=== PATIENT | female | born 1960 | race Caucasian/White ===

== ENCOUNTER 2018-02-23 16:05 | Observation (INO) | payer MEDICAID ==
[~2018-02-23] VITALS: Ht 165.1 cm; Wt 81.0 kg
[2018-02-23] VITALS (7 sets, daily range): BP systolic 105–157; BP diastolic 53–102
--- NOTE | ~2018-02-23 | HEMODYNAMI ---
PATIENT:WINNIE REID MEDICAL RECORD: [id number] : 64 LOCATION:[facility] D.2120 ADMISSION DATE: 02/23/18 Generatedon:02/25/201815:10 Patient name: WINNIE REID Patient #: [id number] SSN: : 1960 Date of study: 02/25/2018 Page: Of Hemodynamic Procedure Report Patient Data Patient Demographics Procedure consent was obtained First Name: WINNIE Gender: Female Last Name: JEANETTE : 1960 [facility] Initial: L Age: 57 year(s) Patient #: [id number] Race: Unknown Additional ID: [id number] Contact details Address: [address] [place] [address] State: [place] City: [facility] [place] Zip code: [address] Past Medical History Allergies Allergen Reaction Date Comments Reported Other allergy 02/25/2018 NSAIDS, TYLENOL, AMOXICILLIN, ASA, MORPHINE Admission Admission Data Admission Date: 02/23/2018 Admission Time: 21:51 Room #: D.2120 Lab Results Lab Result Date: 02/25/2018 Lab Result Time: 0:00 Biochemistry Name Units Result Min Max BUN mg/dl 10 --(-*--)-- 7 18 Creatinine mg/dl 0.9 --(-*--)-- 0.6 1.3 CBC Name Units Result Min Max Hemoglobin g/dl 14.3 --(*---)-- 13.5 17.5 Procedure Procedure Types Cath Procedure Diagnostic Procedure LHC LHC w/Coronaries Procedure Description Procedure Date Procedure Date: 02/25/2018 Procedure Start Time: 14:56 Procedure End Time: 15:09 Procedure Staff Name Function Dariel Reis MD Performing Physician Stephenie Vernon RT Monitor Selam Sterling RT Scrub Kandi Finley RN Nurse Procedure Data Cath Procedure Fluoroscopy Diagnostic fluoroscopy Total fluoroscopy Time: 2.7 time: 2.7 min min Diagnostic fluoroscopy Total fluoroscopy dose: 488 dose: 488 mGy mGy Contrast Material Contrast Material Type Amount (ml) Isovue 300 31 Entry Location Entry Primary Successful Side Size Upsize Upsize Entry Closure Bauer ccessful Closure Location (Fr) 1 (Fr) 2 (Fr) Remarks Device Remarks Radial Right 6 Fr Mechanical artery Short Compression Estimated blood loss: 5 ml Diagnostic catheters Device Type Used For End Catheter Placement DIAGNOSTIC Stillmore 110cm 5 Procedure Fr catheter ([id number]) Procedure Complications No complications Procedure Medications Medication Administration Route Dosage Oxygen etCO2 Nasal cannula 2 l/min Lidocaine 2% added to field 20 Heparin Flush Bag added to field 2 bags (1000units/500ml NS) 0.9% NaCl I.V. 100 ml/hr Versed I.V. 1 mg Fentanyl I.V. 50 mcg Radial Cocktail I.A. 1 syringe (Verapomil 2mg/Nitro 400mcg/Heparin 1500units) Versed I.V. 1 mg Fentanyl I.V. 50 mcg Versed I.V. 1 mg Plavix P.O. 300 mg Hemodynamics Rest HGB: 14.3 (g/dl) Heart Rate: 68 (bpm) Snapshots Pre Cath Intra NCS Post Cath Vital Signs Time Heart Resp SPO2 etCO2 NIBP (mmHg) Rhythm Pain Sedation Rate (ipm) (%) (mmHg) Status Level (bpm) 14:22:19 71 16 97 0 115/86(102) NSR 0 (11) 10(A) , No pain 14:26:18 73 15 98 43.4 118/75(89) NSR 0 (11) 10(A) , No pain 14:30:16 71 15 100 44.2 113/81(101) NSR 0 (11) 10(A) , No pain 14:34:16 67 14 98 44.2 101/72(82) NSR 0 (11) 10(A) , No pain 14:38:11 68 13 97 43.4 110/76(92) NSR 0 (11) 10(A) , No pain 14:42:13 69 14 98 42.7 115/66(86) NSR 0 (11) 10(A) , No pain 14:46:16 67 13 97 42.6 113/63(82) NSR 0 (11) 10(A) , No pain 14:50:37 67 18 98 41.9 100/68(79) NSR 0 (11) 10(A) , No pain 14:54:36 64 19 99 43.4 98/61(74) NSR 0 (11) 10(A) , No pain 14:58:32 72 18 98 48.6 99/70(81) NSR 0 (11) 9(A) , No pain 15:02:31 79 18 95 0 99/61(87) NSR 0 (11) 9(A) , No pain 15:05:56 76 15 94 40.3 101/58(79) NSR 0 (11) 10(A) , No pain Medications Time Medication Route Dose Verified Delivered Reason Notes Effectiveness by by 14:29:17 Plavix P.O. 300 mg Dariel Buffie for Smiley Finley RN antiplatelet therapy 14:30:10 Oxygen etCO2 2 l/min Dariel Buffie used for Nasal Smiley Finley RN procedure cannula 14:30:18 Lidocaine 2% added 20ml Darielrosana Vieira for local to vial Smiley Reis MD anesthetic field 14:30:25 Heparin Flush added 2 bags Dariel Vieira used for Bag to Smiley Reis MD procedure (1000units/500ml field NS) 14:30:33 0.9% NaCl I.V. 100 Dariel Buffie Per ml/hr Smiley Finley RN physician 14:54:09 Versed I.V. 1 mg Dariel Espinozaie for sedation Smiley Finley RN 14:54:16 Fentanyl I.V. 50 mcg Dariel Espinozaie for sedation Smiley Finley RN 14:58:28 Radial Cocktail I.A. 1 Darielrosana Vieira for (Verapomil syringe Smiley Reis MD vasodilation 2mg/Nitro 400mcg/Heparin 1500units) 14:59:23 Versed I.V. 1 mg Dariel Buffie for sedation Smiley Finley RN 14:59:27 Fentanyl I.V. 50 mcg Dariel Espinozaie for sedation Smiley Finley RN 15:04:46 Versed I.V. 1 mg Dariel Buffie for sedation Smiley Finley RN Procedure Log Time Note 13:59:16 Time tracking: Regular hours (M-F 7:00 - 5:00) 13:59:20 Plan of Care:Hemodynamics will remain stable., Cardiac rhythm will remain stable., Comfort level will be maintained., Respiratory function will remain adequate., Patient/ family verbilizes understanding of procedure., Procedure tolerated without complication., Recovers from procedure without complications.. 13:59:22 Stephenie Vernon RT(R) sent for patient. Start room use. 13:59:23 Signed procedure consent form obtained from patient. 13:59:31 H&P Date Dictated: 02/23/2018 Within 30 days and on chart.. 14:12:20 Patient received from Med II to CCL 2 Alert and oriented. Tansferred to table in Supine position. 14:12:21 Warm blankets applied, and maría elena hugger turned on for patient comfort. 14:12:21 Correct patient and procedure confirmed by team. 14:12:22 ECG and BP/O2 sat monitors applied to patient. 14:21:15 Vital chart was started 14:24:12 Baseline sample Acquired. 14:24:23 Rhythm: sinus rhythm 14:24:25 Full Disclosure recording started 14:24:26 Pre-procedure instructions explained to patient. 14:24:26 Pre-op teaching completed and patient verbalized understanding. 14:24:27 Family unavailable. 14:24:29 Patient NPO since Midnight. 14:24:32 Is patient on blood thinner?Yes 14:24:39 PRE LOADED 14:24:41 Patient diabetic? No. 14:24:56 Previous problem with sedation/anesthesia? Yes ? 14:24:58 Snore? Yes 14:24:59 Sleep apnea? No 14:24:59 Deviated septum? No 14:25:00 Opens mouth fully? Yes 14:25:01 Sticks out tongue? Yes 14:25:05 Airway obstruction? Yes ASTHMA, COPD 14:25:08 Dentures? No ? 14:25:10 Modified Kev's test Ulnar < 7 seconds 14:25:12 Patient pain scale 0/10 ?. 14:25:17 IV patent on arrival in left antecubital with 0.9% NaCl at [facility]. 14:26:41 Lab Result : Creatinine 0.9 mg/dl 14:26:41 Lab Result : BUN 10 mg/dl 14:26:42 Lab Result : Hemoglobin 14.3 g/dl 14:29:17 Plavix 300 mg P.O. was administered by Kandi Finley RN; for antiplatelet therapy; 14:30:09 Patient allergic to Other allergyNSAIDS, TYLENOL, AMOXICILLIN, ASA, MORPHINE 14:30:10 Oxygen 2 l/min etCO2 Nasal cannula was administered by Kandi Finley RN; used for procedure; 14:30:18 Lidocaine 2% 20ml vial added to field was administered by Dariel Reis MD; for local anesthetic; 14:30:25 Heparin Flush Bag (1000units/500ml NS) 2 bags added to field was administered by Dariel Reis MD; used for procedure; 14:30:33 0.9% NaCl 100 ml/hr I.V. was administered by Kandi Finley RN; Per physician; 14:31:53 Lab results completed and on chart. 14:31:57 Right Radial & Right Groin area was prepped with chlora-prep and draped in sterile fashion 14::58 Alarms reviewed by R. N. 14::58 Sharps counted by scrub and verified by R.N. 14:35:15 Use device set Radial Dx or PCI 14:35:18 ACIST Syringe (07049) opened to sterile field. 14:35:19 Bag Decanter (2002S) opened to sterile field. 14:35:20 ACIST Hand Control (14561) opened to sterile field. 14:35:21 ACIST Manifold (37054) opened to sterile field. 14:35:21 Tegaderm 4 x 4 (1626W) opened to sterile field. 14:35:23 Medline Cath Pack ([id number]) opened to sterile field. 14:35:23 DIAGNOSTIC WIRE .035 260cm J wire (808477) opened to sterile field. 14:35:24 MBrace Wrist Support ([id number]) opened to sterile field. 14:35:25 SHEATH 6Fr Prelude Radial ([id number]) opened to sterile field. 14:35:29 Zero performed for pressure channel P1 14:49:55 Baseline sample Acquired. 14:50:59 --------ALL STOP TIME OUT------ 14:51:00 Final Timeout: patient, procedure, and site verified with staff and physician. All members of the team are in agreement. 14:51:02 Right Radial & Right Groin site verified by team. 14:51:05 Physical assessment completed. ASA score P 2 - A patient with mild systemic disease as per Dariel Reis MD. 14:51:08 Sedation plan: IV Moderate Sedation Medication:Versed, Fentanyl 14:54:09 Versed 1 mg I.V. was administered by Kandi Finley RN; for sedation; 14:54:16 Fentanyl 50 mcg I.V. was administered by Kandi Finley RN; for sedation; 14:55:59 Procedure started. 14:56:07 Local anesthetic to right radial artery with Lidocaine 2% by Dariel Reis MD.INITIAL ACCESS ONLY 14:56:36 Zero performed for pressure channel P1 14:57:10 A 6 Fr Short sheath was inserted into the Right Radial artery 14:57:21 A DIAGNOSTIC Stillmore 110cm 5 Fr catheter (000891) was advanced over the wire and used for Procedure. 14:58:28 Radial Cocktail (Verapomil 2mg/Nitro 400mcg/Heparin 1500units) 1 syringe I.A. was administered by Dariel Reis MD; for vasodilation; 14:58:37 GLIDE WIRE ANGLE 260cm (KE5929) opened to sterile field. 14:59:23 Versed 1 mg I.V. was administered by Kandi Finley RN; for sedation; 14:59:27 Fentanyl 50 mcg I.V. was administered by Kandi Finley RN; for sedation; 14:59:39 TORQUE DEVICE PLASTIC .038 ( TD01) opened to sterile field. 14:59:55 LV gram done using SKELTON 14:59:57 Injector settings: Ml/sec: 7, Volume: 15, 15:00:21 EF : 60 % 15:01:30 RCA angiography performed. 15:02:35 LCA angiography performed. 15:02:38 Catheter removed. 15:02:47 Procedure ended.(Physican Out) 15:02:59 TR BAND Standard ([id number]) opened to sterile field. 15:03:08 Fluoroscopy time 02.70 minutes. 15:03:14 Fluoroscopy dose: 488 mGy 15:03:14 Flurop Dose total: 488 15:03:17 Contrast amount:Isovue 300 31ml. 15:03:18 Sharps counted by scrub and verified by R.N. 15:03:44 Sheath removed intact; hemostasis achieved with Mechanical Compression to the Right Radial artery. 15:03:48 TR band inflated with 10cc of air. 15:03:53 Post-procedure physical assessment completed. ASA score P 2 - A patient with mild systemic disease as per Dariel Reis MD. 15:04:02 Post procedure rhythm: sinus rhythm 15:04:05 Estimated blood loss: 5 ml 15:04:06 Post procedure instruction explained to patient.Patient verbalizes understanding. 15:04:07 Patient needs reinforcement of post procedure teaching. 15:04:38 Procedure and supply charges have been captured, reviewed, submitted and are correct. 15:04:41 Procedure Complication : No complications 15:04:46 Versed 1 mg I.V. was administered by Kandi Finley RN; for sedation; 15:08:10 Vital chart was stopped 15:08:10 See physician's report for complete and final results. 15:09:07 Report given to Pre/Post Procedure Room. 15:09:10 Patient transfered to Pre/Post Procedure Room with Bed. 15:09:19 Procedure ended. 15:09:19 Full Disclosure recording stopped 15:09:22 End room use (Document Last) Device Usage Item Name Manufacture Quantity Catalog Number Hospital Part Current M inimal Lot# / Charge Number Stock Stock Serial# Code ACIST Syringe Acist 1 79673 872480 349107 684743 2 0 (06618) [employer] Bag Decanter Microtek 1 2002S 069657 99855 033915 5 (2002S) Medical Inc. ACIST Hand Acist 1 00587 676155 016445 745634 5 Control (44479) [employer] Inc ACIST Manifold Acist 1 39245 613984 199744 657768 5 (03941) [employer] Inc Tegaderm 4 x 4 3M 1 1626W 588624 758707 051067 5 (1626W) Medline Cath Cardinal 1 [id number] 059369 29232 529723 5 Pack [facility] ([id number]) DIAGNOSTIC WIRE [place] 1 867744 403279 991556 349387 3 0 .035 260cm J wire (268232) MBrace Wrist Advanced 1 140-0250-00 770162 42840 647029 5 Support Vascular (740252960) Dynamics SHEATH 6Fr Merit 1 [id number] 597289 586383 844541 5 Prelude Radial Medical ([id number]) DIAGNOSTIC Terumo 1 96-4056 366639 018113 376369 5 Stillmore 110cm 5 Fr catheter (763052) GLIDE WIRE Terumo 1 ZH4971 728665 653199 565157 5 ANGLE 260cm (NP3415) TORQUE DEVICE [place] 1 TD01 914921 103885 588644 5 PLASTIC .038 ( Scientific TD01) TR BAND Terumo 1 [id number] 389976 057255 144983 4 0 Standard ([id number]) Signature Audit Dierks Stage Time Signature Unsigned Intra-Procedure 02/25/2018 Stephenie Vernon 3:09:56 PM RT(R) Signatures Monitor : Stephenie Vernon Signature : RT Date : Time : [address] [address]
--- NOTE | ~2018-02-23 | ST ---
PATIENT:WINNIE REID MEDICAL RECORD: [id number] SEX: F LOCATION:[address] ORDER #: ADMISSION DATE: 02/23/18 AGE OF PATIENT: 57 REFERRING PHYSICIAN: INTERPRETING PHYSICIAN: AMBROSIO DOWLING MD DATE OF SERVICE: 02/24/2018 PROCEDURE: Nuclear stress test. INDICATION: Chest pain of unknown etiology. She was exercised on standard Lexiscan protocol with 33.0 mCi injected at peak stress. Rest images were done previously with 13 mCi. FINDINGS: Gated SPECT reveals preserved ejection fraction greater than 70% with good wall motion and thickening and brightening throughout all segments. SPECT IMAGING: Cardiolite was used as myocardial fusion agent. There is reversible ischemia apically, laterally anteroapical. This includes the apex, anterior apex, mid lateral, inferolateral and apical lateral segments. The degree of reversibility is moderate. The amount of myocardial involved is moderate. OVERALL IMPRESSION: This is an abnormal nuclear stress test, reversible changes apically, laterally and anterior apically suggestive of hemodynamically significant stenosis. We would proceed with coronary angiography study. TRANSINT:[id number] Voice Confirmation ID: [id number] DOCUMENT ID: [id number] AMBROSIO DOWLING MD at 1752 CC: [id number] DICTATION DATE: 02/24/18 1612 CARDIOLOGY SPECIALIST: 02/24/18 1646 ADM IN [place] [address] [place] [address]
--- NOTE | ~2018-02-23 | DS ---
PATIENT:WINNIE REID :64 MEDICAL RECORD: [id number] DISCHARGE SUMMARY ADMISSION DATE: 02/23/18 DISCHARGE DATE: 02/25/18 DATE OF SERVICE: 02/25/2018 DIAGNOSES: 1. Noncardiac chest pain. 2. Normal cardiac catheterization. 3. Chronic obstructive pulmonary disease. 4. Family history of coronary artery disease. 5. Smoking. HISTORY AND HOSPITAL COURSE: Ms. Reid presents with chest pain; however, cardiac catheterization reveals no significant coronary artery disease. Most likely her pain is musculoskeletal in nature. No other cardiac workup or treatment is necessary. No cardiac followup is necessary. TRANSINT:[id number] Voice Confirmation ID: [id number] DOCUMENT ID: [id number] AMBROSIO DOWLING MD at 1834 CC: [id number] DICTATION DATE: 02/25/18 1506 RF TECHNICIAN: 02/25/18 1532 DIS IN 02/25/18 [place] [address] [place] [address]
--- NOTE | ~2018-02-23 | OP ---
PATIENT NAME: WINNIE REID MEDICAL RECORD: [id number] :64 LOCATION:[facility] ADMISSION DATE:02/23/18 SURGEON: AMBROSIO DOWLING MD DATE OF OPERATION: 02/25/2018 PROCEDURES: 1. Left heart catheterization. 2. Selective coronary angiography. 3. Left ventriculogram. INDICATION: Chest pain of unknown etiology, abnormal nuclear stress test. DESCRIPTION OF PROCEDURE: After informed consent was obtained and after a detailed explanation of risks, benefits as well as alternative therapies, the patient elected to proceed with angiogram and heart catheterization. The right radial area was prepped and draped in normal sterile fashion. Right radial artery was cannulated via modified Seldinger technique with placement of 5-[place] sheath. All catheters exchanged through this sheath. FINDINGS: The left ventriculogram was performed in standard 30-degree SKELTON view, reveals good cardiac wall motion throughout all segments. Overall ejection fraction estimated 60%. SELECTIVE CORONARY ANGIOGRAPHY: 1. Left main - The left anterior descending, left circumflex and right coronary all are smooth-walled vessels with no angiographic evidence of coronary artery disease. OVERALL IMPRESSION: 1. No angiographic evidence of coronary artery disease. 2. Normal left heart pressures. 3. Normal left ventricular systolic function. Chest pain is noncardiac in etiology. No further cardiac workup needs to be ascertained. TRANSINT:[id number] Voice Confirmation ID: [id number] DOCUMENT ID: [id number] AMBROSIO DOWLING MD at 1834 CC: [id number] DICTATION DATE: 02/25/18 1507 RENTAL SALES ASSOCIATE: 02/25/18 1530 DIS IN 02/25/18 [place] [address] [place] [address]
[2018-02-23] MEDS ORDERED: PROAIR HFA8.5 GM INH (16:11)
[2018-02-23 16:55] LABS: BASOPHILS 0.6 % (0-2); EOSINOPHILS 1.9 % (0-7); HEMATOCRIT 43.2 % (36.0-48.0); HEMOGLOBIN 14.3 g/dL (12-16); IMMATURE GRANULOCYTES 0.2 % (0-5); LYMPHOCYTES 35.1 % (15-50); MCH 30.8 pg (26.0-34.0); MCHC 33.1 g/dL (31.0-37.0); MCV 92.9 fL (80.0-100.0); MEAN PLATELET VOLUME 10.5 fL (7.4-10.4); MONOCYTES 6.6 % (2-11); NEUTROPHILS 55.6 % (40-80); PLATELET COUNT 250 10x3/uL (130-400); RBC 4.65 10x6/uL (4.00-5.40); RDW 13.2 % (11.5-14.5); WBC 8.8 10x3/uL (4.8-10.8)
[2018-02-23 17:17] LABS: ALBUMIN 3.6 g/dL (3.4-5.0); ALKALINE PHOSPHATASE 102 U/L (46-116); ALT (SGPT) 18 U/L (10-68); BILIRUBIN - TOTAL 0.18 mg/dL (0.2-1.3); CALC OSMOLALITY 279 mosm/kg (275-300); CALCIUM 9.2 mg/dL (8.5-10.1); CARBON DIOXIDE 27.9 mmol/L (21.0-32.0); CHLORIDE - SERUM 106 mmol/L (98-107); CREATININE - SERUM 0.9 mg/dL (0.6-1.3); GLUCOSE 91 mg/dL (74-106); POTASSIUM - SERUM 3.3 mmol/L (3.5-5.1); PROTEIN - SERUM 7.4 g/dL (6.4-8.2); SODIUM 141 mmol/L (136-145); UREA NITROGEN 10 mg/dL (7-18); eGFR NON AFRICAN AMERICAN 69 mL/min (90-120)
[2018-02-23 17:27] LABS: CKMB 1.3 U/L (0.0-3.6); CREATINE KINASE 73 UL (21-215); MAGNESIUM - SERUM 1.9 mg/dL (1.8-2.4)
[2018-02-23 17:31] LABS: TROPONIN-I < 0.017 ng/mL (0.000-0.060)
[2018-02-23 21:40] LABS: CKMB 0.9 U/L (0.0-3.6); TROPONIN-I < 0.017 ng/mL (0.000-0.060)
[2018-02-23 23:26] LABS: APPEARANCE CLEAR (CLEAR); BILIRUBIN NEGATIVE (NEGATIVE); COLOR YELLOW (YELLOW); GLUCOSE NEGATIVE (NEGATIVE); KETONE NEGATIVE (NEGATIVE); NITRITE NEGATIVE (NEGATIVE); PROTEIN NEGATIVE (NEGATIVE); UROBILINOGEN NORMAL (NORMAL)
[2018-02-23 23:29] LABS: BACTERIA MANY /hpf (NONE SEEN); EPITHELIAL CELLS 0-5 /hpf (0-5); RED CELLS - URINE 0-5 /hpf (0-5); WHITE CELLS - URINE 0-5 /hpf (0-5)
[2018-02-24 00:30] VITALS: BP 157/102; BMI 25.0
[2018-02-24 05:28] VITALS: BP 128/86
[2018-02-24 12:08] VITALS: BP 150/95
[2018-02-24 13:28] VITALS: Ht 165.1 cm; Wt 81.0 kg
[2018-02-24 16:05] VITALS: BP 113/71
[2018-02-24] MEDS ORDERED: ATIVAN1 MG PO (20:05)
[2018-02-24] MEDS ORDERED: HYDROCODONE-APA1 TAB PO (20:05)
[2018-02-24] MEDS ORDERED: ALEVE220 MG PO (20:06)
[2018-02-24 20:42] VITALS: BP 107/73
[2018-02-24] MEDS ORDERED: OXYCODONE HCL10 MG PO (20:51)
[2018-02-25 00:59] VITALS: BP 107/70
[2018-02-25 05:14] VITALS: BP 120/81
[2018-02-25 07:30] VITALS: BP 108/70
[2018-02-25 11:40] VITALS: BP 112/77
== END 2018-02-25 17:45 | disposition home or self-care (01) ==
LOC: D.ER 16:05 → D.EDHOLD 21:51 → D.M2 21:51 → OBSVTIME 21:51 → D.M2 22:23 → D.CLR 02-25 16:14
PROVIDERS: Emergency Medicine; Family Medicine
DX: R07.9 Chest pain, unspecified (principal); J44.9 Chronic obstructive pulmonary disease, unspecified; I10 Essential (primary) hypertension; F17.200 Nicotine dependence, unspecified, uncomplicated; F41.8 Other specified anxiety disorders; Z01.812 Encounter for preprocedural laboratory examination

== ENCOUNTER 2018-03-12 12:18 | Emergency (ER) | payer MEDICAID ==
[2018-02-24 13:28] VITALS: BMI 24.9
[~2018-03-12 12:18] MED LIST: ALEVE220 MG PO; ATIVAN1 MG PO; HYDROCODONE-APA1 TAB PO; OXYCODONE HCL10 MG PO; PROAIR HFA8.5 GM INH
== END 2018-03-12 12:45 | disposition left against medical advice (07) ==
LOC: D.ER 12:18
DX: F99 Mental disorder, not otherwise specified (principal)